=== PATIENT | female | born 1960 | race Caucasian/White ===

== ENCOUNTER 2016-08-31 08:52 | Outpatient (CLI) | payer OTHER ==
--- NOTE | 2016-08-31 10:45 | OP Clinic Progress Note ---
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 She has been fairly inactive for quite a few years. Since I last saw her she has had 2 flares. They were minor. She bumped up her prednisone for a couple of days and they resolved. She continues to suffer from myasthenia gravis. She has been receiving intravenous gammaglobulin. This is to be increased from every 4 weeks to every 3 weeks. She still has complaints of pain in her knees. She also saw a physician for pain in her right hand and she has CMC osteoarthritis. PAST MEDICAL HISTORY: As above. She has also had arthroscopic surgery of the left knee. DIAGNOSTIC STUDIES: She brings in her labs. Her creatinine from February is 1, down from 1.4. No eosinophilia on her CBC. PRESENT MEDICATIONS: Medications are unchanged from her last visit. REVIEW OF SYSTEMS: No fevers, chills, sweats, chest pain, shortness of breath, cough, wheezing, nausea, vomiting, or diarrhea. PHYSICAL EXAMINATION: VITAL SIGNS: She is 5 feet 4 inches and weighs 258 pounds. T: 97, R: 12, P: 60 , BP: 140/80. HEENT: Grossly unremarkable. LUNGS: Clear. HEART: Regular rate and rhythm. ABDOMEN: Soft. VASCULAR: No edema or cyanosis. No active skin lesions. JOINTS: She has some tenderness at the CMC joints but otherwise no synovitis at PIPs, MCPs, and wrists. IMPRESSION: 1. No evidence of recurrent vasculitis. 2. Myasthenia gravis. 3. Obesity. 4. Osteoarthritis. PLAN: 1. I refilled her prednisone. 2. I will see her back in 6 months. Thank you very much, PENELOPE
== END 2016-08-31 08:53 ==
LOC: RHEU 08:52
PROVIDERS: ATTEND Internal Medicine
DX: I77.6 Arteritis, unspecified (principal)
CPT/HCPCS: 99213

== ENCOUNTER 2017-03-01 11:12 | Outpatient (CLI) | payer OTHER ==
--- NOTE | 2017-03-01 18:16 | OP Clinic Progress Note ---
REASON FOR VISIT: Trista Lee is an interesting lady who I first met with purpura of the lower extremities, eosinophilia, and we felt maybe she had Churg Robert vasculitis. Anyway, she has been stable. I have not seen her in about 6 months. She had 1 small flare. She bumped up her prednisone for a couple of days and it resolved. The main problem is myasthenia gravis. She has lost her job and thus her insurance and has not had any treatment with IVIG. She has gotten weaker and is using a walker. With that, her knees have gotten worse and she is known to have osteoarthritis. The new problem is edema and presently takes Lasix as needed. MEDICATIONS: Medications are otherwise reviewed. REVIEW OF SYSTEMS: She has had no nosebleeds. No cough, wheezing, nausea. No gum bleeding. No new lesions. No cough, nausea, vomiting, or diarrhea or numbness or tingling of extremities. PHYSICAL EXAMINATION: VITAL SIGNS: Weight: 276 pounds. T: 98, R: 20, heart rate 69, BP: 160/70. HEENT: Grossly unremarkable. LUNGS: Clear. HEART: Regular rhythm. ABDOMEN: Soft. VASCULAR: Shows 1+ edema up to the knee. SKIN: No purpura. No lesions. Minimal changes of venous stasis dermatitis. JOINTS: Unremarkable. DIAGNOSTIC STUDIES: She brings in labs from February 27, white blood cell count is 11.44, hemoglobin is 13.1, platelets are normal and reportedly eosinophil count is normal. Creatinine is 0.9, alkaline phosphatase and liver functions were normal. 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 Continue prednisone 5 mg daily as needed. PLAN: I will see her in 6 months. Follow up with Neurology for IVIG. cc: Dr. Tae NEGRETE
== END 2017-03-01 11:30 ==
LOC: RHEU 11:12
PROVIDERS: ATTEND Internal Medicine
DX: M30.1 Polyarteritis with lung involvement [Churg-Strauss] (principal); G70.00 Myasthenia gravis without (acute) exacerbation; M17.0 Bilateral primary osteoarthritis of knee; R60.9 Edema, unspecified
CPT/HCPCS: 99213

== ENCOUNTER 2017-08-30 08:57 | Outpatient (CLI) | payer OTHER ==
--- NOTE | 2017-08-30 13:04 | OP Clinic Progress Note ---
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 From that point of view, she has done well. She has had no rashes in the past 6 months and basically, it puts her in 2 years of remission. She remains on 5 mg of prednisone. She has also developed myasthenia gravis and receives intravenous gammaglobulin and that is working well. She requires surgery to her left knee, possibly a replacement; however, she has been asked to lose at least 30 pounds. Her chronic low back pain remains stable. PRESENT MEDICATIONS: 1. Pilar. 2. Aspirin. 3. Atenolol. 4. Atorvastatin. 5. Calcium supplements. 6. Klonopin as needed. 7. Vitamin D. 8. Doxepin. 9. Lasix 40 mg daily. 10. Gabapentin 300 mg twice a day. 11. Levothyroxine 0.224 mg. 12. Lisinopril. 13. Methylphenidate. 14. Nitrostat sublingual as needed. 15. Potassium chloride. 16. Toviaz 8 mg once a day. 17. Prednisone 5 mg daily. REVIEW OF SYSTEMS: No fevers, chills, sweats, chest pain, shortness of breath, cough, wheezing, nausea, vomiting, or diarrhea. She has gotten disability. PHYSICAL EXAMINATION: VITAL SIGNS: WEIGHT: 281. Height: 5 feet 3 inches. BP: 149/84, T: 96.9, R: 20, heart rate 67. HEENT: Unremarkable. LUNGS: Clear. HEART: Regular rhythm. ABDOMEN: Soft. VASCULAR: No edema or cyanosis. SKIN: No rashes. No edema. No purpura. PERIPHERAL JOINTS: No synovitis at the DIPs, PIPs, or MCPs. LABORATORY: She brings in labs done August 15, 2017. Her creatinine is 1. Her estimated GFR, however, is 58. AST is normal. Eosinophil count is 1.7%. Platelet count of 427. IMPRESSION: Churg-Robert vasculitis, over 2 years in remission. PLAN: 1. I am going to wean her off her prednisone. 2. She is to return as needed for follow up. Thank you very much. cc: Dr. Tae NEGRETE
== END 2017-08-30 09:00 ==
LOC: RHEU 08:57
PROVIDERS: ATTEND Internal Medicine
DX: M30.1 Polyarteritis with lung involvement [Churg-Strauss] (principal)
CPT/HCPCS: 99213

== ENCOUNTER 2017-11-29 13:47 | Outpatient (CLI) | payer OTHER ==
--- NOTE | 2017-12-02 14:24 | OP Clinic Progress Note ---
HISTORY OF PRESENT ILLNESS: Trista Lee is a lady with Churg Robert vasculitis. She has been in remission for 2 years. When I last saw her in August, we stopped her prednisone. Since then, she has had worsening joint pain throughout including her hands, wrists, elbows, shoulders, and knees. It is associated with 30 minutes of morning stiffness but no swelling. Otherwise, she has had no unexplained fevers or chills. She has been losing weight by diet. She has lost 20 pounds. She has had no recurrence of her skin rashes. No numbness or tingling of her extremities. She has myasthenia gravis and received intravenous gamma-globulin and that has been going well. She requires a right total knee replacement but needs to lose another 10 pounds prior to that. Chronic low back pain remains stable. PRESENT MEDICATIONS: 1. Pilar 180 mg daily. 2. Asmanex Twisthaler. 3. Aspirin 81 mg daily. 4. Atenolol 50 mg daily. 5. Atorvastatin 20 mg at bedtime. 6. Calcium supplements. 7. Klonopin 0.5 mg one-half tablet daily. 8. CPAP. 9. Desonate Gel. 10. Divigel. 11. Doxepin 25 mg daily. 12. Fluticasone nasal spray. 13. Lasix 60 mg daily. 14. Gabapentin 300 mg to be increased to 3 times a day. 15. Halobetasol ointment. 16. Gammagard every 4 weeks. 17. Levothyroxine 224 mcg daily. 18. Lidocaine cream. 19. Lisinopril 10 mg daily. 20. Methylphenidate 5 mg twice a day. 21. Nitrostat sublingual tablets as needed. 22. Ocuvite. 23. Omeprazole 40 mg daily. 24. Potassium chloride 30 mEq daily. 25. ProAir inhaler. 26. Protopic ointment. 27. Pyridostigmine 60 mg twice a day. 28. Toviaz 8 mg once a day. 29. Triamcinolone acetonide cream 1% as needed. REVIEW OF SYSTEMS: As per HPI. PHYSICAL EXAMINATION: VITAL SIGNS: Height: 5 feet 3 inches. Weight: 263 pounds. T: 97.3, R: 18, heart rate 67, BP: 130/80. HEENT: Grossly unremarkable. LUNGS: Clear. HEART: Regular rate and rhythm. ABDOMEN: Soft. VASCULAR: No edema or cyanosis. SKIN: No rashes and specifically no purpura. JOINTS: Diffuse tenderness but no synovitis at the DIPs, PIPs, MCPs, wrists, elbows, shoulders, ankles and feet. Both knees have changes of osteoarthritis. She is limping. She has got some medial joint line tenderness. Some crepitance. No instability. LABORATORY: Labs from November 07 are reviewed. Her eosinophil count is normal at 4.4%. AST and liver functions are normal. Hemoglobin 13.1. Platelets 405,000. IMPRESSION: 1. Churg Robert vasculitis, in remission. 2. 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 PLAN: I am putting her back on 5 mg of prednisone for the next 4 weeks. Then I would like her to decrease it to 2.5 mg daily in an attempt to wean her off if at all possible. Thank you very much. Best regards, PENELOPE
== END 2017-11-29 14:11 ==
LOC: RHEU 13:47
PROVIDERS: ATTEND Internal Medicine
DX: M30.1 Polyarteritis with lung involvement [Churg-Strauss] (principal); M13.0 Polyarthritis, unspecified
CPT/HCPCS: 99213; 99214

== ENCOUNTER 2018-05-30 09:57 | Outpatient (CLI) | payer MEDICARE, OTHER ==
--- NOTE | 2018-06-02 15:10 | OP Clinic Progress Note ---
REASON FOR VISIT: Trista Lee is a lady with a history of Churg-Robert vasculitis. She has been in remission for 2-1/2 years now. When I last saw her in November, she was having excruciating joint pain. I put her back on prednisone 5 mg daily which helped her symptoms. 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 She is presently on 2.5 mg of prednisone and is not doing well, although it continues to help, she still has significant pain in her fingers and knees. Since I last saw her, she had MRIs of both knees done. She has severe osteoarthritis of both knees, right knee greater than left. She had some sort of nerve ablation done to the right knee to manage her pain. She suffers from myasthenia gravis and continues receiving intravenous gamma globulin monthly. Chronic back pain remains stable. Her chief complaint today is pain in the right thumb as she points to the DIP joint. PAST MEDICAL HISTORY: As above. PAST SURGICAL HISTORY: 1. Cholecystectomy. 2. Appendectomy. PRESENT MEDICATIONS: 1. Pilar. 2. Asmanex. 3. Aspirin. 4. Atenolol 50 mg daily. 5. Atorvastatin 20 mg at bedtime. 6. Calcium. 7. CPAP. 8. Doxepin. 9. Lasix 60 mg daily. 10. Gabapentin 300 mg twice a day. 11. IV IG. 12. Levothyroxine 225 mcg daily. 13. Lisinopril 10 mg daily. 14. Methylphenidate 5 mg twice a day. 15. Omeprazole 40 mg daily. 16. Potassium chloride 30 mEq. 17. Prednisone 2.5 mg daily. 18. Topamax 50 mg twice a day. 19. Toviaz 8 mg daily. 20. Triamcinolone acetonide. PRIOR TREATMENT: Rituxan. ALLERGIES: She has no drug allergies. REVIEW OF SYSTEMS: No fevers, chills, sweats, chest pain, shortness of breath, cough, or wheezing. No change in her urine. No swelling of her legs. No skin rashes. No numbness or tingling of extremities. Past medical history is as above. PHYSICAL EXAMINATION: VITAL SIGNS: Weight: 255 pounds. BP: 116/70, P: 49, R: 14, TP 97.9. HEENT: Unremarkable. LUNGS: Clear bilaterally. HEART: Regular rate and rhythm. ABDOMEN: Soft and nontender. VASCULAR: No edema or cyanosis. PERIPHERAL JOINTS: Hard bony swelling and tenderness at DIPs and PIPs. Synovial cyst at right thumb. MCPs, wrists, and elbows, no synovitis or tenderness. Both knees have medial joint line tenderness. No effusion. Ankles are slightly tender. MTPs are unremarkable. LABORATORY: Labs from May 22 were reviewed. Relevant labs include a creatinine of 0.9. CBC and CMP otherwise unremarkable. IMPRESSION: Her hand pain looks more like osteoarthritis. PLAN: She is going to continue prednisone but at 5 mg daily. I will see her back in 4 months. No need for reevaluation at this time. Thank you very much. Best regards, PENELOPE
== END 2018-05-30 10:03 | disposition home or self-care (01) ==
LOC: RHEU 09:57
PROVIDERS: ATTEND Internal Medicine
DX: M30.1 Polyarteritis with lung involvement [Churg-Strauss] (principal); G70.00 Myasthenia gravis without (acute) exacerbation; M79.644 Pain in right finger(s); G89.29 Other chronic pain; M54.89 Other dorsalgia
CPT/HCPCS: 99212; G0463